=== PATIENT | female | born 1965 | race Two or more races ===

== ENCOUNTER 2016-03-14 14:27 | Emergency (ER) | payer OTHER ==
[2016-03-14 15:15] VITALS: TEMP 98.4
[2016-03-14 15:57] LABS: COLOR YELLOW; LEUKOCYTE ESTERASE,URINE NEGATIVE (NEGATIVE); NITRITE,URINE NEGATIVE (NEGATIVE); PH,URINE 5.5 (5.0-7.5)
--- NOTE | 2016-03-14 16:06 | UCPHY ---
H & P Patient Type: New Chief Complaint Nursing Narrative: Since monday night has had left side abd pain . 11/29. 3 wks ago had similar pain and was [facility] had some imaging and w/u and was told it could be "mesenteric ischemia "Seen by Charito holden. Decreased appetite . No vomiting . Increased Urination. Time Seen by Provider: 03/14/16 15:54 HPI/ROS: HPI: 50-year-old female presents to urgent care with chief concern left upper 10/10 abdominal pain that is constant, aching, associated with nausea and decreased appetite. Onset suddenly 3 days ago. Has had this intermittently times 4-6 months. Was evaluated by primary care, apparently CT was performed. Apparently patient was told to follow up with a specialist to rule out mesenteric ischemia. This was in over 1 month ago and she did not do so due to financial issues. Denies fever, URI symptoms, shortness of breath, chest pain, vomiting, diarrhea, urinary burning or frequency. Reports blood sugars that have been under control recently. ROS:10 point review of systems is negative other than as stated in HPI Source: Patient Exam Limitations: No limitations - Personal History LMP (Females 10-55): Post Menopausal - Medical/Surgical History Hx Asthma: No Hx Chronic Respiratory Disease: No Hx Diabetes: No Hx Cardiac Disease: No Hx Renal Disease: No Hx Cirrhosis: No Hx Alcoholism: No Hx HIV/AIDS: No Hx Splenectomy or Spleen Trauma: No Other PMH: PCP Yari Bettencourt. Fatty Liver. Htn , Prediabetic. Csec x 2 , Hernia ventral - Family History Significant Family History: No pertinent family hx - Social History Smoking Status: Never smoked Alcohol Use: Rarely Drug Use: None - Physical Exam Exam: Vital signs stable, reviewed by me General: Awake, alert, calm, cooperative. No acute distress. Head: Normalocephalic. Atraumatic. EENT: PERRLA. EOMI. No pallor or injection. Anicteric. No nystagmus. No injection. TMs intact bilaterally with normal landmarks. No rhinnorhea, nasal passages clear. Oropharynx without redness, exudates, or lesions. Tonsils 2+ bilaterally, no exudates. Neck: Supple, nontender. No lymphadenopathy. Full range of motion. No meningismus. Respiratory: Breathing unlabored. Breath sounds equal bilaterally and clear to auscultation. No adventitious sounds. CV: Chest nontender, atraumatic. Heart rate regular. No murmur, distal pulses 2+ bilaterally. Brisk cap refill all extremities. GI: Abdomen soft, moderate left upper quadrant tenderness. No guarding. No left lower quadrant tenderness. No right lower quadrant tenderness. No right upper quadrant tenderness. Bowel sounds normoactive and positive x4 quadrants. : No suprapubic tenderness. No CVA or flank tenderness. Neuro: Alert. Oriented x 3. Speech clear. Nonfocal cranial nerves throughout. Sensation intact all extremities. Skin: Skin warm, dry, intact. No rashes. Skin turgor normal. Extremities: Full range of motion in all 4 extremities. Strength 5+ all extremities. Constitutional: Initial Vital Signs Temperature (C) 36.9 C 03/14/16 15:06 Heart Rate 70 03/14/16 15:06 Respiratory Rate 18 03/14/16 15:06 Blood Pressure 141/77 H 03/14/16 15:06 O2 Sat (%) 95 03/14/16 15:06 O2 Delivery Mode Room Air O2 (L/minute) 2 Allergies/Adverse Reactions: dextromethorphan HBr [From Theraflu Max-D Severe Cold-Flu] Allergy (Verified 15:15) guaifenesin [From Theraflu Max-D Severe Cold-Flu] Allergy (Verified 03/14/16 15: 15) pseudoephedrine HCl [From Theraflu Max-D Severe Cold-Flu] Allergy (Verified 15:15) Home Medications: Medication Instructions Recorded Hydrochlorothiazide [HCTZ (*)] 25 mg PO DAILY 09/26/10 Lisinopril [Zestril 40 mg (*)] 40 mg PO DAILY 10/07/13 metFORMIN HCL [Glucophage 500 mg 500 mg PO BIDMEAL 10/07/13 (*)] Fatty Liver Medicine 03/14/16 Medical Decision Making - Diagnostics Imaging: CT Scan of the Abdomen (With Contrast) Clinical Indications: Left upper abdominal pain, elevated white blood cell count, diabetic Technique: 90 mL of Isovue-370 were given intravenously by machine power injection. Multidetector helical CT imaging was performed from the diaphragm to the symphysis pubis. Dose reduction techniques were utilized. Comparison: January 23, 2006 Findings: Abdomen: The lung bases are clear, without pleural fluid. Heart size is normal without pericardial effusion. The liver is normal. The biliary ducts and gallbladder are unremarkable. The pancreas and spleen are normal. The adrenal glands and kidneys are normal. No adenopathy and no masses are found. The abdominal aorta is normal in size. No small bowel obstruction. No abnormal bowel enhancement or lack of enhancement. There is normal contrast in the abdominal aorta, celiac axis, superior mesenteric artery and superior mesenteric vein. No free air or free fluid. Portions of a normal vermiform appendix are identified. A previous masslike abnormality in the region of the ileocecal valve is no longer present, and may have represented an ileocecal intussusception. There is no abdominal or mesenteric adenopathy. No skeletal abnormality is identified. Impression: No source for left upper abdominal pain identified. Results discussed with Angélica Win. Dictated By: Hosea Wright MD ED Course/Re-evaluation: 1615: 50-year-old female presents to urgent care with chief concern left upper abdominal pain 10/10 associated with nausea. Ongoing for 3 days. Has been intermittent over the past 4-6 months. IV started. Labs and urinalysis pending. Normal saline, 1 mg IV Dilaudid, 4 mg of IV Zofran given. CT abdomen with IV contrast ordered. 1700: White blood cell count 80822. Basic metabolic panel unremarkable. LFTs negative. Lipase 195. Amylase 75. Lactate 0.9. Urinalysis negative. CT abdomen pending. Pain now 3/10, nausea resolved. 1720: CT abdomen is negative. I have counseled this patient regarding prompt need for follow-up tomorrow with her primary care provider. She verbalizes understanding of this and agrees to do so. Her son is present. Differential Diagnosis: Differential diagnosis includes but is not limited to mesenteric ischemia, splenic infarct, abscess, CA - Data Points Laboratory Results: Laboratory Results 03/14/16 15:57 03/14/16 15:57 03/14/16 03/14/16 03/14/16 16:44 15:57 15:45 WBC 10.29 H 10^3/uL (3.80-9.50) RBC 4.72 10^6/uL (4.18-5.33) Hgb 13.9 g/dL (12.6-16.3) Hct 42.1 % (38.0-47.0) MCV 89.2 fL (81.5-99.8) MCH 29.4 pg (27.9-34.1) MCHC 33.0 g/dL (32.4-36.7) RDW 13.7 % (11.5-15.2) Plt Count 382 10^3/uL (150-400) MPV 9.3 fL (8.7-11.7) Neut % (Auto) 58.2 % (39.3-74.2) Lymph % (Auto) 30.6 % (15.0-45.0) [place] % (Auto) 7.1 % (4.5-13.0) Eos % (Auto) 3.2 % (0.6-7.6) Baso % (Auto) 0.6 % (0.3-1.7) Nucleat RBC Rel Count 0.0 % (0.0-0.2) Absolute Neuts (auto) 5.99 10^3/uL (1.70-6.50) Absolute Lymphs (auto) 3.15 H 10^3/uL (1.00-3.00) Absolute Monos (auto) 0.73 10^3/uL (0.30-0.80) Absolute Eos (auto) 0.33 10^3/uL (0.03-0.40) Absolute Basos (auto) 0.06 10^3/uL (0.02-0.10) Absolute Nucleated RBC 0.00 10^3/uL (0-0.01) Immature Gran % 0.3 % (0.0-1.1) Immature Gran # 0.03 10^3/uL (0.00-0.10) VBG Lactic Acid 0.9 mmol/L (0.7-2.1) Sodium 140 mEq/L (134-144) Potassium 4.3 mEq/L (3.5-5.2) Chloride 102 mEq/L (97-110) Carbon Dioxide 26 mEq/l (22-31) Anion Gap 12 mEq/L (8-16) BUN 17 mg/dL (7-23) Creatinine 0.8 mg/dL (0.6-1.0) Estimated GFR > 60 Glucose 85 mg/dL (70-100) Calcium 9.7 mg/dL (8.5-10.4) Total Bilirubin 0.5 mg/dL (0.1-1.4) Conjugated Bilirubin 0.4 mg/dL (0.0-0.5) Unconjugated Bilirubin 0.1 mg/dL (0.0-1.1) AST 16 IU/L (14-46) ALT 34 IU/L (9-52) Alkaline Phosphatase 76 IU/L (38-126) Total Protein 7.7 g/dL (6.3-8.2) Albumin 4.1 g/dL (3.5-5.0) Amylase 75 IU/L (30-110) Lipase 195.0 IU/L (23-300) Urine Color YELLOW Urine Appearance CLEAR Urine pH 5.5 (5.0-7.5) Ur Specific [place] 1.015 (1.002-1.030) Urine Protein NEGATIVE (NEGATIVE) Urine Ketones NEGATIVE (NEGATIVE) Urine Blood NEGATIVE (NEGATIVE) Urine Nitrate NEGATIVE (NEGATIVE) Urine Bilirubin NEGATIVE (NEGATIVE) Urine Urobilinogen 0.2 EU (0.2-1.0) Ur Leukocyte Esterase NEGATIVE (NEGATIVE) Urine Glucose NEGATIVE (NEGATIVE) Medications Given: Discontinued Medications Hydromorphone HCl (Dilaudid) 1 mg IVP EDNOW ONE Stop: 03/14/16 16:17 Last Admin: 03/14/16 16:30 Dose: 1 mg Sodium Chloride (Ns) 1,000 mls @ 0 mls/hr IV ONCE ONE PRN Reason: Wide Open Stop: 03/14/16 16:16 Last Admin: 03/14/16 16:30 Dose: 1,000 mls Ondansetron HCl (Zofran) 4 mg IVP EDNOW ONE Stop: 03/14/16 16:17 Last Admin: 03/14/16 16:30 Dose: 4 mg Departure - Departure Disposition: Home, Routine, Self-Care Clinical Impression: Left sided abdominal pain Condition: Good Instructions: Abdominal Pain (ED) Additional Instructions: Plan: You need to be evaluated by your primary care provider or other provider at [facility] tomorrow for recheck without fail--When you call to schedule appointment, please let the office know you are an "ER follow up" appointment" May use 1000 mg of Tylenol every 8 hours as needed for discomfort For more severe pain may use 1 Percocet every 4 hours as needed (given take home pack of 4)--Never drink or drive while taking this medication. This medication impairs decision making capacity so do not work or sign important documents while taking. This medication its constipating so drink plenty of fluids and consider an [id number] stool softener such as docusate sodium ( Colace) while taking this medication. This medication has addictive properties. You should use the least amount for the shortest amount of time. [facility] do not refill narcotic pain medication prescriptions. This is a hospital policy. You will need to follow up as indicated for recheck for further narcotic refills. For nausea, 1 Zofran every 4-6 hours as needed (given takehome pack of 2) Drink plenty of fluids Referrals: [facility],. [Primary Care Provider] - As per Instructions - PQRS PQRS Measurement: Not applicable
[2016-03-14 16:09] LABS: % IMMATURE GRANULYOCYTES 0.3 % (0.0-1.1); ABSOLUTE IMMATURE GRANULOCYTES 0.03 10^3/uL (0.00-0.10); ADD DIFF? NO; ADD MORPH? NO; ADD SCAN? NO; ATYPICAL LYMPHOCYTE FLAG 10 (0-99); FRAGMENT RBC FLAG 0 (0-99); HEMATOCRIT 42.1 % (38.0-47.0); HEMOGLOBIN 13.9 g/dL (12.6-16.3); LEFT SHIFT FLG 0 (0-99); LIPEMIA HEMOLYSIS FLAG 80 (0-99); MEAN CELL HEMOGLOBIN 29.4 pg (27.9-34.1); MEAN CELL VOLUME 89.2 fL (81.5-99.8); MEAN PLATELET VOLUME 9.3 fL (8.7-11.7); PLATELET CLUMPS FLAG 0 (0-99); PLATELET COUNT 382 10^3/uL (150-400); RED BLOOD CELL COUNT 4.72 10^6/uL (4.18-5.33); RED CELL DISTRIBUTION WIDTH 13.7 % (11.5-15.2)
[2016-03-14] MEDS ORDERED: NS 1,000 ML IV ONE (16:15)
[2016-03-14] MEDS ORDERED: HYDROmorphONE/DILAUDID 1 MG/ML SYR IVP ONE (16:16)
[2016-03-14] MEDS ORDERED: ONDANSETRON 4 MG/2 ML VIAL IVP ONE (16:16)
[2016-03-14] MEDS ORDERED: IOPAMIDOL (ISOVUE 370) 100 ML BTL IV ONE (16:21)
[2016-03-14 16:24] LABS: ALANINE AMINOTRANSFERASE 34 IU/L (9-52); ALBUMIN 4.1 g/dL (3.5-5.0); ALKALINE PHOSPHATASE 76 IU/L (38-126); ANION GAP 12 mEq/L (8-16); ASPARTATE AMINOTRANSFERASE 16 IU/L (14-46); BILIRUBIN,TOTAL 0.5 mg/dL (0.1-1.4); BILIRUBIN-CONJUGATED 0.4 mg/dL (0.0-0.5); BILIRUBIN-UNCONJUGATED 0.1 mg/dL (0.0-1.1); CALCIUM 9.7 mg/dL (8.5-10.4); CARBON DIOXIDE 26 mEq/l (22-31); CHLORIDE 102 mEq/L (97-110); CREATININE 0.8 mg/dL (0.6-1.0); GLOMERULAR FILTRATION RATE > 60; GLUCOSE 85 mg/dL (70-100); POTASSIUM 4.3 mEq/L (3.5-5.2); SODIUM 140 mEq/L (134-144); TOTAL PROTEIN 7.7 g/dL (6.3-8.2)
--- NOTE | 2016-03-14 17:17 | CT ---
CT Scan of the Abdomen (With Contrast) Clinical Indications: Left upper abdominal pain, elevated white blood cell count, diabetic Technique: 90 mL of Isovue-370 were given intravenously by machine power injection. Multidetector helical CT imaging was performed from the diaphragm to the symphysis pubis. Dose reduction techniques were utilized. Comparison: January 23, 2006 Findings: Abdomen: The lung bases are clear, without pleural fluid. Heart size is normal without pericardial e ffusion. The liver is normal. The biliary ducts and gallbladder are unremarkable. The pancreas and spleen are normal. The adrenal glands and kidneys are normal. No adenopathy and no masses are found . The abdominal aorta is normal in size. No small bowel obstruction. No abnormal bowel enhancement or lack of enhancement. There is normal contrast in the abdominal aorta, celiac axis, superior mesenter ic artery and superior mesenteric vein. No free air or free fluid. Portions of a normal vermiform charity endix are identified. A previous masslike abnormality in the region of the ileocecal valve is no long er present, and may have represented an ileocecal intussusception. There is no abdominal or mesenteri c adenopathy. No skeletal abnormality is identified. Impression: No source for left upper abdominal pain identified. Results discussed with Angélica Win.
[2016-03-14] MEDS ORDERED: OXYCODONE/APAP 5/325MG PREPACK#4 BTL TAKEHOME ONE (17:28)
[2016-03-14] MEDS ORDERED: ONDANSETRON 4MG PREPACK#2 BTL TAKEHOME ONE (17:28)
[2016-03-14 18:31] VITALS: BP 106/64; PULSE 72; RESP 16; O2SAT 98
== END 2016-03-14 18:26 | disposition home or self-care (01) ==
LOC: CED 14:27
DX: R10.12 Left upper quadrant pain (principal); I10 Essential (primary) hypertension; Z78.0 Asymptomatic menopausal state
CPT/HCPCS: 74160-PO; 80048-PO; 80076-PO; 81003-PO; 82150-PO; 83605-PO; 83690-PO; 85025-PO; 96361-PO; 96374-PO; 96375-PO; 99205-PO; G0463-PO; J1170; J2405; Q9967

== ENCOUNTER 2017-11-13 13:08 | Emergency (ER) | payer OTHER ==
[2017-11-13 14:15] LABS: PLATELET COUNT 343 10^3/uL (150-400)
--- NOTE | 2017-11-13 14:30 | EDPHY ---
HPI/HX/ROS/PE/MDM - Data Points Imaging: Discussed imaging studies w/ call manager Radiologist Narrative: CHIEF COMPLAINT: Abdominal pain. HISTORY OF PRESENT ILLNESS: This patient is a pleasant 52 year old female complaining of abdominal pain. She has had RLQ abdominal pain for two days with associated nausea. She went to [facility] for evaluation and was referred to the ED with concern for appendicitis. Yesterday, she felt febrile. Now, she no longer feels febrile but complains of increasingly severe pain. Today, she also has pain in her right flank. She has increased pain with movement or when she walks. Food also seems to make her pain worse. She denies hematuria, dysuria, urinary frequency or urgency. Denies history of kidney stones. No chest pain, shortness of breath, palpitations, vomiting, diarrhea, urinary complaints, headache, lightheadedness. REVIEW OF SYSTEMS: A comprehensive 10 system review of systems is otherwise negative aside from elements mentioned in the history of present illness and medical decision making. PAST MEDICAL HISTORY: Pre-diabetes. Hypertension. x2. Hernia repair. SOCIAL HISTORY: Family at bedside. Lives in [place]. Employed. VITAL SIGNS: Reviewed by me GENERAL: Well-developed, well-nourished, resting comfortably in no respiratory distress. HEENT: Atraumatic. Eyes: No icterus, no injection. Mouth: moist mucous membranes. No erythema or lesions. Neck: supple with no adenopathy. LUNGS: Clear to auscultation bilaterally, no wheezes, rhonchi or rales. CARDIAC: Regular rate and rhythm, no rubs, murmurs or gallops. ABDOMEN: RLQ tenderness. Soft, nondistended, bowel sounds normal. BACK: Right flank tenderness. EXTREMITIES: No trauma. No edema. Range of motion is normal throughout. NEURO: Alert and oriented, grossly nonfocal. SKIN: Warm and dry, no rash. PSYCHIATRIC: Normal mentation, no agitation. Portions of this note were transcribed by a bacteriologist medical. I personally performed a history, physical exam, medical decision making, and confirmed accuracy of information the transcribed note. (Sarina Baxter) ED Course: 52 y/o female presents with RLQ abdominal pain and nausea onset two days ago. Exam reveals RLQ and right flank tenderness. Plan for CT abdomen/pelvis, labs including CBC, chemistries, UA. Labs unremarkable. UA neg for infection. No significant RUQ pain. CT scan normal appendix. No kidney stone. US pending at time of this dictation. No evidence for acute abdomen. Will make plans for DC with abdominal pain precautions and follow up pending US results. Care assumed by Dr Boykin at 5pm. (Sarina Baxter) Ultrasound reported to me by Dr. Puri at 5:20 p.m.. Calcified leiomyoma in the fundus of the uterus, ovaries normal. Patient is being discharged home as per Dr. Baxter's instructions. (Noemi Boykin) MDM: After obtaining the patients history and performing an examination, differential diagnosis considered included but was not limited to appendicitis, cholecystitis, pelvic etiology, UTI, kidney stone and other causes. (Sarina Baxter) - Data Points Imaging Results: Pelvic US: Impression: 1. Right fundal calcified 1.9- x 1.8- x 1.1-cm leiomyoma. 2. No adnexal masses or ovarian torsion. 3. No significant free fluid in the pelvis. Findings and recommendations discussed with Emergency Department physician, Noemi Boykin M.D., at 1722 hours, on November 13, 2017. Final report concurs with initial preliminary interpretation. E:GI/amm Dictated By: Dave Puri (Sarina Baxter) Laboratory Results: Laboratory Results 11/13/17 14:00 11/13/17 14:00 Medications Given: Discontinued Medications Sodium Chloride (Ns) 1,000 mls @ 0 mls/hr IV ONCE ONE; Wide Open PRN Reason: Protocol Stop: 11/13/17 15:52 Last Admin: 11/13/17 15:56 Dose: 1,000 mls Ketorolac Tromethamine (Toradol) 15 mg IVP EDNOW ONE Stop: 11/13/17 16:25 Last Admin: 11/13/17 17:09 Dose: 15 mg General Time Seen by Provider: 11/13/17 14:14 Initial Vital Signs: Initial Vital Signs Temperature (C) 36.7 C 11/13/17 13:09 Heart Rate 90 11/13/17 13:09 Respiratory Rate 18 11/13/17 13:09 Blood Pressure 138/87 H 11/13/17 13:09 O2 Sat (%) 96 11/13/17 13:09 O2 Delivery Mode Room Air Allergies/Adverse Reactions: dextromethorphan HBr [From Theraflu Max-D Severe Cold-Flu] Allergy (Verified 15:15) guaifenesin [From Theraflu Max-D Severe Cold-Flu] Allergy (Verified 03/14/16 15: 15) pseudoephedrine HCl [From Theraflu Max-D Severe Cold-Flu] Allergy (Verified 15:15) Home Medications: Medication Instructions Recorded Hydrochlorothiazide [HCTZ (*)] 25 mg PO DAILY 09/26/10 Lisinopril [Zestril 40 mg (*)] 40 mg PO DAILY 10/07/13 metFORMIN HCL [Glucophage 500 mg 500 mg PO BIDMEAL 10/07/13 (*)] Fatty Liver Medicine 03/14/16 Ondansetron Odt [Zofran Odt 4 mg 4 mg PO Q6 PRN #8 tab 11/13/17 (RX)] Departure - Departure Disposition: Home, Routine, Self-Care Clinical Impression: Abdominal pain Qualifiers: Abdominal location: right lower quadrant Qualified Code(s): R10.31 - Right lower quadrant pain Condition: Good Instructions: Acute Abdominal Pain (ED) Additional Instructions: There is no evidence of appendicitis on your abdominal CT scan. There is no evidence of a bowel obstruction or cause of your abdominal pain which would require surgery. For your abdominal pain, I suggested you start with a bland diet and advance as tolerated. This means start with clear liquids such as water, Gatorade, juice, flat non- caffeinated soda. If you tolerate clear liquids, then you may add bland foods such as bananas, rice, or toast. If you do not have any worsening of your symptoms, you may begin to resume a regular diet. For your pain, I recommend Tylenol or ibuprofen. For your nausea you been given a prescription of Zofran to use as needed for ongoing nausea. Please follow up with your primary care physician if you're not improving as expected over the next couple days. Referrals: Juliocesar Greenberg MD [Primary Care Provider] - As per Instructions Stand Alone Forms: Work Excuse Prescriptions: Ondansetron Odt [Zofran Odt 4 mg (RX)] 4 mg PO Q6 PRN #8 tab PRN Reason: Nausea Report Scribed for: Sarina Baxter Report Scribed by: Janie Porter Date of Report: 11/13/17 Time of Report: 15:35
[2017-11-13] MEDS ORDERED: IOPAMIDOL (ISOVUE-300) 100 ML BTL ONE (14:52)
[2017-11-13] MEDS ORDERED: NS 1,000 ML IV ONE (15:51)
[2017-11-13] MEDS ORDERED: KETOROLAC 15 MG/1 ML SDV IVP ONE (16:24)
[2017-11-13 17:36] VITALS: BP 125/85
== END 2017-11-13 17:45 | disposition home or self-care (01) ==
DX: D25.9 Leiomyoma of uterus, unspecified (principal); I10 Essential (primary) hypertension; E86.9 Volume depletion, unspecified
CPT/HCPCS: 96374; J1885; Q9967

== ENCOUNTER 2018-03-10 16:57 | Inpatient (IN) | payer OTHER ==
[2018-03-10] MEDS ORDERED: ACETAMINOPHEN 500 MG TAB PO ONE (17:17)
[2018-03-10] MEDS ORDERED: NS 1,000 ML IV ONE ×3 (17:24→21:25)
[2018-03-10] MEDS ORDERED: ONDANSETRON 4 MG/2 ML VIAL IVP PRN ×2 (17:24→21:24)
--- NOTE | 2018-03-10 17:29 | EDPHY ---
General - History Smoking Status: Never smoked Time Seen by Provider: 03/10/18 17:25 Narrative: CLINICAL IMPRESSION: Sepsis, strep pharyngitis, influenza a, hypoxia ASSESSMENT/PLAN: Patient is a 52-year-old female with a history of diabetes and hypertension who presents to the emergency department with fever, myalgias, sore throat and nausea. Patient is febrile on arrival, tachycardic. Physical exam revealed bilateral symmetric tonsillar enlargement with exudate. Rapid strep positive, influenza a positive. Chest x-ray revealed no evidence of infiltrate or consolidation. CBC with leukocytosis of 20,000, suspect directly resultant of a strep pharyngitis. Patient does meet sepsis criteria based on leukocytosis and source, fluid resuscitated with 2 L of normal saline. Patient given Decadron, Tylenol, Toradol, Tamiflu and 1 g of amoxicillin in the emergency department. Patient continued to feel better than on arrival however she had episodes of hypoxia in the mid 80s. She was ultimately placed on 3 L of oxygen via nasal cannula. History and physical examination is consistent with sepsis, strep pharyngitis, influenza a and hypoxia. Patient will be admitted to the hospitalist service for further observation and management. She did remain hemodynamically stable in the emergency department. I spoke directly with Dr. Leung who will be the admitting physician. Case, results and plan of care discussed with Dr. Esposito, he also evaluated this patient. DIFFERENTIAL DX: Adult fever including but not limited to viral syndromes including influenza, urinary tract infection, pneumonia and sepsis. ED COURSE: 1754: Discussed with Dr. Esposito 1840: Dr. Esposito in to see patient at this time. CHIEF COMPLAINT: Headache, nausea, sore throat and myalgias HPI: Patient is a 52-year-old female with a medical history of hypertension and recent diagnosis of diabetes who presents to the emergency department with nausea, body aches, headache and decreased appetite which started suddenly yesterday at 9:00 p.m.. Patient was seen and evaluated by her primary care provider earlier in the week, diagnosed with diabetes and was started on metformin. Yesterday she reports a sudden onset of sore throat, body aches and generally feeling unwell at 9:00 p.m.. Since then she has had very low appetite , nausea however denies any vomiting. She has had a progressive headache throughout the day, denies it being the worst headache of her life, also complains of generalized body aches. No known sick contacts, she did get a flu shot back in December. She denies any runny nose, congestion or cough. Her stomach feels upset however she does not have any abdominal pain. She denies any urinary symptoms to include dysuria, hematuria or frequency. Bowel movements have been regular. PMH: Diabetes, hypertension Family History: Noncontributory Social History: REVIEW OF SYSTEMS: All other systems negative Constitutional: Decreased appetite Eyes: No discharge, vision change ENT: No sore throat, congestion, ear pain. Cardiovascular: No chest pain, no palpitations. Respiratory: No cough, no shortness of breath. Gastrointestinal: Nausea, no abdominal pain, vomiting or diarrhea. Genitourinary: No hematuria, dysuria, flank pain, pelvic pain Musculoskeletal: Myalgias, no neck pain or back pain. Skin: No rashes, color change. Neurological: Headache. PHYSICAL EXAM: General Appearance: Obese, tired appearing and uncomfortable appearing however not toxic-appearing. HENT: Normocephalic, atraumatic. Bilateral external ears are normal. Bilateral tympanic membranes are normal with pearly garrett reflex. Nares are clear, mucosa is pink. Oropharynx is clear, uvula is midline. There is symmetric bilateral tonsillar enlargement with exudate. Her phonation is normal without hot potato voice, there is no trismus and there is no stridor. The dentition is normal. Eyes: PERRLA, no nystagmus, swelling, discharge, pain or photosensitivity. Conjunctiva pink, no pallor or injection. Neck: Supple, nontender, no lymphadenopathy, no midline pain, FROM, no meningismus. Respiratory: There are no retractions, lungs are clear to auscultation. Cardiac: Tachycardic, no murmurs or gallops. Gastrointestinal: Abdomen is soft, nontender, bowel sounds normal, no masses/ hernia, no rigidity, guarding or focal peritoneal findings. Neurological: Alert and oriented x 3, CN 2-12 grossly intact, normal gait no ataxia, DTR's intact, normal sensation and strength Skin: Warm, dry, no rashes, no nodules on palpation. Musculoskeletal: Extremities are symmetrical, full range of motion, no tenderness, deformity, swelling, or erythema. Psychiatric: Patient is oriented X 3, there is no agitation. MEDICAL DECISION MAKING: Patient was seen independently. Secondary supervising physician at time of evaluation was . Diagnosis: Sepsis, influenza a, strep pharyngitis, hypoxia . New, requires workup Summary: See Assessment and Plan for summary of ED visit Clinical lab tests: ordered / reviewed. Independent visualization of images, tracing, or specimens: Yes. Decision to obtain medical records or history from someone other than the patient: No. Review / Summarize previous medical records: Yes. Discussed patient with another provider: Yes, Dr. Esposito and Dr. Leung. Patient Progress: Stable, admit. (Leticia Harrison) - Objective Vital Signs: Initial Vital Signs Temperature (C) 39.4 C H 03/10/18 17:06 Heart Rate 117 H 03/10/18 17:06 Respiratory Rate 22 H 03/10/18 17:06 Blood Pressure 124/74 H 03/10/18 17:06 O2 Sat (%) 95 03/10/18 17:06 O2 Delivery Mode Room Air O2 (L/minute) 0.5 Allergies/Adverse Reactions: dextromethorphan HBr [From Theraflu Max-D Severe Cold-Flu] Allergy (Verified 17:09) guaifenesin [From Theraflu Max-D Severe Cold-Flu] Allergy (Verified 03/10/18 17: 09) pseudoephedrine HCl [From Theraflu Max-D Severe Cold-Flu] Allergy (Verified 17:09) Home Medications: Medication Instructions Recorded Hydrochlorothiazide [HCTZ (*)] 25 mg PO HS 09/26/10 Lisinopril [Zestril 40 mg (*)] 40 mg PO HS 10/07/13 metFORMIN HCL [Glucophage 500 mg 500 mg PO BIDMEAL 10/07/13 (*)] Fatty Liver Medicine 03/14/16 Laboratory Results: Laboratory Results 03/11/18 04:13 03/11/18 04:13 Medications Given: Acetaminophen (Tylenol) 650 mg PO Q6 PRN PRN Reason: Pain, Mild/Fever, Can Take PO Stop: 09/06/18 21:23 Last Admin: 03/11/18 09:30 Dose: 650 mg Amoxicillin (Amoxicillin) 500 mg PO Q8HRS ISA PRN Reason: Protocol Stop: 04/09/18 21:59 Last Admin: 03/11/18 21:36 Dose: 500 mg Enoxaparin Sodium (Lovenox) 40 mg SC BID [facility] Stop: 09/07/18 08:59 Last Admin: 03/11/18 21:37 Dose: 40 mg Sodium Chloride (Ns) 1,000 mls @ 150 mls/hr IV CONT [facility] Stop: 09/06/18 21:29 Last Admin: 03/11/18 14:30 Dose: 1,000 mls Ibuprofen (Motrin) 600 mg PO Q6HRS PRN PRN Reason: Pain, Mild Stop: 09/07/18 09:27 Last Admin: 03/11/18 18:02 Dose: 600 mg Melatonin (Melatonin) 3 mg PO HS [facility] Stop: 09/07/18 20:59 Last Admin: 03/11/18 21:36 Dose: 3 mg Metformin HCl (Glucophage) 500 mg PO BIDMEAL [facility] Stop: 09/07/18 07:59 Last Admin: 03/11/18 18:03 Dose: 500 mg Ondansetron HCl (Zofran) 4 mg IVP Q4 PRN PRN Reason: Nausea/Vomiting, Can't Take PO Stop: 09/06/18 17:23 Last Admin: 03/10/18 19:15 Dose: 4 mg Oseltamivir Phosphate (Tamiflu) 75 mg PO BIDMEAL [facility] Stop: 03/15/18 18:01 Last Admin: 03/11/18 18:04 Dose: 75 mg Discontinued Medications Acetaminophen (Tylenol) 1,000 mg PO EDNOW ONE Stop: 03/10/18 17:18 Last Admin: 03/10/18 17:20 Dose: 1,000 mg Amoxicillin (Amoxicillin) 1,000 mg PO EDNOW ONE PRN Reason: Protocol Stop: 03/10/18 18:51 Last Admin: 03/10/18 19:15 Dose: 1,000 mg Dexamethasone (Decadron Injection) 10 mg IVP EDNOW ONE Stop: 03/10/18 18:50 Last Admin: 03/10/18 19:15 Dose: 10 mg Sodium Chloride (Ns) 1,000 mls @ 0 mls/hr IV ONCE ONE PRN Reason: Wide Open Stop: 03/10/18 17:25 Last Admin: 03/10/18 17:35 Dose: 1,000 mls Sodium Chloride (Ns) 1,000 mls @ 0 mls/hr IV ONCE ONE PRN Reason: Wide Open Stop: 03/10/18 18:41 Last Admin: 03/10/18 19:14 Dose: 1,000 mls Sodium Chloride (Ns) 1,000 mls @ 0 mls/hr IV ONCE ONE PRN Reason: Wide Open Stop: 03/10/18 21:26 Last Admin: 03/10/18 21:27 Dose: 1,000 mls Sodium Chloride (Ns) 1,000 mls @ 3,000 mls/hr IV ONCE ONE Stop: 03/11/18 12:54 Last Admin: 03/11/18 12:59 Dose: 1,000 mls Ketorolac Tromethamine (Toradol) 30 mg IVP EDNOW ONE Stop: 03/10/18 18:12 Last Admin: 03/10/18 18:30 Dose: 30 mg Oseltamivir Phosphate (Tamiflu) 75 mg PO EDNOW ONE Stop: 03/10/18 18:40 Last Admin: 03/10/18 19:15 Dose: 75 mg Departure - Departure Disposition: [facility] Acute Clinical Impression: Influenza A, Strep pharyngitis, Hypoxia Sepsis Qualifiers: Sepsis type: Streptococcus group A Qualified Code(s): A40.0 - Sepsis due to streptococcus, group A Condition: Good
[2018-03-10] MEDS ORDERED: KETOROLAC 30 MG/1 ML SDV IVP ONE (18:11)
[2018-03-10 18:12] LABS: PLATELET COUNT 283 10^3/uL (150-400)
[2018-03-10] MEDS ORDERED: OSELTAMIVIR PHOSPHATE 75 MG CAP PO ONE (18:39)
[2018-03-10] MEDS ORDERED: DEXAMETHASONE 10 MG/ML VIAL IVP ONE (18:49)
[2018-03-10] MEDS ORDERED: ZOLPIDEM TARTRATE 5 MG TAB PO PRN (21:24)
[2018-03-10] MEDS: NS 1,000 ML IV SCH (23:02)
--- NOTE | 2018-03-11 00:28 | PDGENHP ---
History and Physical - Chief Complaint Sore throat, fever - History of Present Illness 52 yo F w/ DM and HTN presents with fever, sore throat, and malaise. She tells me she started feeling poorly yesterday evening. She noted fever, sore throat, shortness of breath, and dizziness. In the ED her evaluation was notable for marked leukocytosis, influenza A, and strep pharyngitis. At the time of my evaluation the patient feels moderately improved after fluids. She is oxygenating well on room air during my evaluation. She denies other symptoms aside from fatigue. Case discussed with Dr. Leung; records reviewed and summarized above. History Information - Allergies/Home Medication List Allergies/Adverse Reactions: dextromethorphan HBr [From Theraflu Max-D Severe Cold-Flu] Allergy (Verified 17:09) guaifenesin [From Theraflu Max-D Severe Cold-Flu] Allergy (Verified 03/10/18 17: 09) pseudoephedrine HCl [From Theraflu Max-D Severe Cold-Flu] Allergy (Verified 17:09) Home Medications: Hydrochlorothiazide [HCTZ (*)] 25 mg PO HS 09/26/10 [Last Taken 03/09/18] Lisinopril [Zestril 40 mg (*)] 40 mg PO HS 10/07/13 [Last Taken 03/09/18] metFORMIN HCL [Glucophage 500 mg (*)] 500 mg PO BIDMEAL 10/07/13 [Last Taken PM] Fatty Liver Medicine 03/14/16 [Last Taken Unknown] I have personally reviewed and updated: family history, medical history - Past Medical History diabetes type 2, hypertension - Surgical History Reports: hernia repair Additional surgical history: x2 - Family History Positive for: CAD - Social History Smoking Status: Never smoked Review of Systems Review of Systems: ROS: 10pt was reviewed & negative except for what was stated in HPI & below Physical Exam Physical Exam: Temp Pulse Resp BP Pulse Ox 36.6 C 76 20 82/53 L 92 03/10/18 23:26 03/10/18 23:26 03/10/18 23:26 03/10/18 23:26 03/10/18 23:26 O2 (L/minute) 0.5 Constitutional: obese, uncomfortable Eyes: PERRL, EOMI Ears, Nose, Mouth, Throat: moist mucous membranes, other (Pharyngeal erythema) Cardiovascular: regular rate and rhythym, no murmur, rub, or gallop Respiratory: no respiratory distress, clear to auscultation Gastrointestinal: normoactive bowel sounds, soft, non-tender abdomen Skin: warm, normal color Musculoskeletal: full muscle strength, no muscle tenderness Neurologic: AAOx3, CN II-XII Intact Psychiatric: interacting appropriately, not anxious Lab Data & Imaging Review 03/10/18 17:30 03/10/18 17:30 WBC 20.10 10^3/uL (3.80-9.50) H 03/10/18 17:30 RBC 4.48 10^6/uL (4.18-5.33) 03/10/18 17:30 Hgb 12.8 g/dL (12.6-16.3) 03/10/18 17:30 Hct 37.5 % (38.0-47.0) L 03/10/18 17:30 MCV 83.7 fL (81.5-99.8) 03/10/18 17:30 MCH 28.6 pg (27.9-34.1) 03/10/18 17:30 MCHC 34.1 g/dL (32.4-36.7) 03/10/18 17:30 RDW 14.1 % (11.5-15.2) 03/10/18 17:30 Plt Count 283 10^3/uL (150-400) 03/10/18 17:30 MPV 9.9 fL (8.7-11.7) 03/10/18 17:30 Neut % (Auto) 87.8 % (39.3-74.2) H 03/10/18 17:30 Lymph % (Auto) 6.6 % (15.0-45.0) L 03/10/18 17:30 [place] % (Auto) 4.8 % (4.5-13.0) 03/10/18 17:30 Eos % (Auto) 0.0 % (0.6-7.6) L 03/10/18 17:30 Baso % (Auto) 0.3 % (0.3-1.7) 03/10/18 17:30 Nucleat RBC Rel Count 0.0 % (0.0-0.2) 03/10/18 17:30 Absolute Neuts (auto) 17.65 10^3/uL (1.70-6.50) H 03/10/18 17:30 Absolute Lymphs (auto) 1.32 10^3/uL (1.00-3.00) 03/10/18 17:30 Absolute Monos (auto) 0.97 10^3/uL (0.30-0.80) H 03/10/18 17:30 Absolute Eos (auto) 0.00 10^3/uL (0.03-0.40) L 03/10/18 17:30 Absolute Basos (auto) 0.06 10^3/uL (0.02-0.10) 03/10/18 17:30 Absolute Nucleated RBC 0.00 10^3/uL (0-0.01) 03/10/18 17:30 Immature Gran % 0.5 % (0.0-1.1) 03/10/18 17:30 Immature Gran # 0.10 10^3/uL (0.00-0.10) 03/10/18 17:30 Sodium 132 mEq/L (135-145) L 03/10/18 17:30 Potassium 3.9 mEq/L (3.5-5.2) 03/10/18 17:30 Chloride 98 mEq/L (97-110) 03/10/18 17:30 Carbon Dioxide 20 mEq/l (22-31) L 03/10/18 17:30 Anion Gap 14 mEq/L (6-14) 03/10/18 17:30 BUN 20 mg/dL (7-23) 03/10/18 17:30 Creatinine 1.1 mg/dL (0.6-1.0) H 03/10/18 17:30 Estimated GFR 52 03/10/18 17:30 Glucose 165 mg/dL (70-100) H 03/10/18 17:30 Calcium 9.1 mg/dL (8.5-10.4) 03/10/18 17:30 Total Bilirubin 0.6 mg/dL (0.1-1.4) 03/10/18 17:30 AST 20 IU/L (14-46) 03/10/18 17:30 ALT 24 IU/L (9-52) 03/10/18 17:30 Alkaline Phosphatase 97 IU/L (38-126) 03/10/18 17:30 Total Protein 7.5 g/dL (6.3-8.2) 03/10/18 17:30 Albumin 4.4 g/dL (3.5-5.0) 03/10/18 17:30 Nasal Influenza A PCR FLU A DETECTED (NEGATIVE) H 03/10/18 17:30 Nasal Influenza B PCR NEGATIVE FOR FLU B (NEGATIVE) 03/10/18 17:30 Group A Strep Screen POSITIVE (NEGATIVE) H 03/10/18 18:15 Imaging Review: Imaging Impressions Chest X-Ray 03/10/18 20:10 Impression: Central bronchitis. Visualized and Interpreted Chest x-ray results: Yes Chest X-Ray results: no infiltrate Assessment & Plan Assessment: 52 yo F w/ DM and HTN presents with influenza A and strep pharyngitis. Plan: 1. Influenza A - Presenting with 1 day of fever, sore throat, and malaise. - Oseltamivir x5 days - Supportive care with IVF and antipyretics 2. Strep pharyngitis - Pharyngeal erythema and tonsillar enlargement noted on exam. - Amoxicillin 500 mg q8H PO 3. Hyponatremia - Mild, suspect related to infection and dehydration. - IVF - Repeat BMP in the morning 4. KAYLIN - Serum creatinine 1.1 on admission; suspect pre-renal azotemia in setting of infection. - IVF - Repeat BMP in the morning 5. DM - Continue metformin. 6. HTN - Hold home meds in setting of infection and low/normal BPs. - Restart as indicated Diet - Regular Code - Full Ppx - LMWH Dispo - Admit under observation status
[2018-03-11 04:53] LABS: PLATELET COUNT 282 10^3/uL (150-400)
[2018-03-11] MEDS: NS 1,000 ML IV SCH ×3 (05:43→14:30)
[2018-03-11] MEDS: OSELTAMIVIR PHOSPHATE 75 MG CAP PO SCH ×2 (09:08→18:04)
[2018-03-11] MEDS: metFORMIN HCL 500 MG TAB PO SCH ×2 (09:08→18:03)
[2018-03-11] MEDS: ENOXAPARIN 40 MG/0.4 ML SYR SC SCH ×2 (09:20→21:37)
[2018-03-11] MEDS: ACETAMINOPHEN 325 MG TAB PO PRN (09:30)
--- NOTE | 2018-03-11 09:46 | ASMTCMCOM ---
CM Note CM Note Notes: 03/11/2018 Case Management Note Reviewed chart. Pt admitted for hypoxia, strep pharyngitis and influenza A. There are no therapies ordered at this time. There are no case management d/c needs identified d/t pt age, family support, employment status and independence with ADL's prior to admission. Case Management d/c poc: independent with follow up as directed. Case Management to follow. Date Signed: 03/11/2018 09:45 AM Electronically Signed By:Nancy Yeh RN
[2018-03-11] MEDS: IBUPROFEN 600 MG TAB PO PRN ×2 (12:00→18:02)
[2018-03-11] MEDS ORDERED: NS 1,000 ML IV ONE (12:35)
--- NOTE | 2018-03-11 12:39 | HOSPPROG ---
Hospitalist Progress Note Assessment/Plan: 52 yo F w/ DM and HTN presents with influenza A and strep pharyngitis. 1. Influenza A: Presenting with 1 day of fever, sore throat, and malaise. She is on room air. - Oseltamivir x5 days - Supportive care with IVF and antipyretics 2. Strep pharyngitis: Pharyngeal erythema and tonsillar enlargement noted on exam. GAS screen +. - Amoxicillin 500 mg q8H PO, plan for 10 days 3. Hypotension: Due to infection. She is symptomatic. - Bolus another 1L NS, continue mIVF 4. Hyponatremia: Mild, resolved with IVF. 5. KAYLIN: Resolving with IVF. 6. Sepsis: Meeting criteria with fever, leukocytosis and pharyngeal source. Present on admission. Improving. - Monitor hemodynamics, CBC 7. DM: Continue metformin. 8. HTN: Hold home meds in setting of infection and low/normal BPs. 9. Dizziness: Due to dehydration/hypotension. - PT/OT Diet - Regular Code - Full Ppx - LMWH Dispo - Switch to inpatient, unsafe to dc to home with unsteady gait and hypotension. Suspect she will be ready to dc tomorrow. Subjective: Shortness of breath, cough, and fevers better. Feeling very dizzy when getting up and moving around. Still has mild sore throat. No n/v/d. Objective: Vital Signs Temp Pulse Resp BP Pulse Ox 36.5 C 68 16 85/52 L 93 03/11/18 11:26 03/11/18 11:26 03/11/18 11:26 03/11/18 11:26 03/11/18 11:26 Laboratory Results 03/11/18 04:13 03/11/18 04:13 03/10/18 03/11/18 03/12/18 05:59 05:59 05:59 Intake Total 2100 Balance 2100 - Physical Exam Constitutional: no apparent distress, obese Eyes: PERRL, anicteric sclera, EOMI Ears, Nose, Mouth, Throat: moist mucous membranes, hearing normal, ears appear normal, no oral mucosal ulcers Cardiovascular: regular rate and rhythym, no murmur, rub, or gallop, No edema Respiratory: no respiratory distress, no rales or rhonchi, clear to auscultation Gastrointestinal: normoactive bowel sounds, soft, non-tender abdomen, no palpable masses Genitourinary: no bladder fullness, no bladder tenderness, no renal bruits Skin: no rashes or abrasions, no fluctuance, no induration Musculoskeletal: full muscle strength, no muscle tenderness, normal joint ROM Neurologic: AAOx3, sensation intact bilaterally Psychiatric: interacting appropriately, not anxious, not encephalopathic, thought process linear ICD10 Worksheet Patient Problems: Problems Problem Status Onset Hypoxia Acute Influenza A Acute Sepsis Acute Strep pharyngitis Acute Abdominal pain Acute Syncope Acute
--- NOTE | 2018-03-11 15:02 | PDMN ---
Medical Necessity Medical necessity: Change to inpt as of 03/11/18 @ 13:03 per MD order and MCG M- 160, Sepsis and Other Febrile Illness, without Focal Infection. 52 y/o admitted w/influenza and strep pharyngitis and sepsis. Upgraded to inpt for hemodynamic instability, hypotensive, symptomatic w/dizziness due to infection requiring IVF bolus, last BP 85/52. Est LOS>2MN for ongoing management of above.
[2018-03-11] MEDS: MELATONIN 3 MG TAB PO SCH (21:36)
[2018-03-12] MEDS: IBUPROFEN 600 MG TAB PO PRN ×3 (08:54→22:02)
[2018-03-12] MEDS: metFORMIN HCL 500 MG TAB PO SCH ×2 (08:54→18:49)
[2018-03-12] MEDS: OSELTAMIVIR PHOSPHATE 75 MG CAP PO SCH ×2 (08:54→18:49)
--- NOTE | 2018-03-12 10:32 | HOSPPROG ---
Hospitalist Progress Note Assessment/Plan: 52 yo F w/ DM and HTN presents with influenza A and strep pharyngitis. First encounter, chart reviewed. * Influenza A - Oseltamivir x5 days - Supportive care with IVF and antipyretics *Strep pharyngitis: Pharyngeal erythema and tonsillar enlargement noted on exam. GAS screen +. - Amoxicillin 500 mg q8H PO, plan for 10 days *leukocytosis -due to the above *Hypotension: Due to infection. -bp still low today, but feeling better and drinking fluids * Hyponatremia: Mild. * KAYLIN: Resolving with IVF. * Sepsis: Improving. * DM: Continue metformin. * HTN: Hold home meds in setting of infection and low/normal BPs. *Dizziness: Due to dehydration/hypotension. - PT/OT Diet - Regular *plan: with continued high wbc count, hypotension, overall feeling poorly; will monitor overnight and see how she is in the morning. 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 Subjective: Humaira has improved appetite, has aches in her spine area and feels tired. Objective: Vital Signs Temp Pulse Resp BP Pulse Ox 36.6 C 63 16 87/55 L 94 03/12/18 07:52 03/12/18 09:10 03/12/18 07:52 03/12/18 07:52 03/12/18 09:10 Laboratory Results 03/12/18 04:22 03/12/18 04:22 - Physical Exam Constitutional: appears nourished, obese, uncomfortable Eyes: PERRL Ears, Nose, Mouth, Throat: hearing normal Cardiovascular: regular rate and rhythym Respiratory: no respiratory distress Gastrointestinal: normoactive bowel sounds Skin: warm Musculoskeletal: muscular tenderness, generalized weakness Neurologic: AAOx3 Psychiatric: interacting appropriately ICD10 Worksheet Patient Problems: Problems Problem Status Onset Hypoxia Acute Influenza A Acute Sepsis Acute Strep pharyngitis Acute Abdominal pain Acute Syncope Acute
[2018-03-12] MEDS: ENOXAPARIN 40 MG/0.4 ML SYR SC SCH ×2 (16:04→22:01)
[2018-03-12] MEDS: ACETAMINOPHEN 325 MG TAB PO PRN (16:04)
[2018-03-12] MEDS: MELATONIN 3 MG TAB PO SCH (22:02)
[2018-03-13 05:15] LABS: PLATELET COUNT 279 10^3/uL (150-400)
[2018-03-13] MEDS: OSELTAMIVIR PHOSPHATE 75 MG CAP PO SCH (08:32)
[2018-03-13] MEDS: metFORMIN HCL 500 MG TAB PO SCH (08:32)
[2018-03-13] MEDS: ENOXAPARIN 40 MG/0.4 ML SYR SC SCH (08:32)
[2018-03-13] MEDS ORDERED: ALBUTEROL 60 PUFFS/8 GM MDI IH PRN (09:56)
[2018-03-13] MEDS ORDERED: TRIAMCINOLONE 0.5% 15GM CREAM TP PRN (09:56)
[2018-03-13] MEDS ORDERED: FLUTICASONE NASAL 120 SPRAYS/16 GM MDI EACHNARE PRN (09:56)
--- NOTE | 2018-03-13 09:59 | HOSPPROG ---
Hospitalist Progress Note Assessment/Plan: 52 yo F w/ DM and HTN presents with influenza A and strep pharyngitis. * Influenza A - Oseltamivir x5 days - Supportive care with IVF and antipyretics *Strep pharyngitis: Pharyngeal erythema and tonsillar enlargement noted on exam. GAS screen +. - Amoxicillin 500 mg q8H PO, plan for 10 days *leukocytosis -due to the above, improved *Hypotension: Due to infection. -bp still low today, but feeling better and drinking fluids * Hyponatremia: Mild. * KAYLIN: Resolving with IVF. * Sepsis: Improving. * DM: Continue metformin. * HTN: Hold home meds in setting of infection and low/normal BPs. *Dizziness: Due to dehydration/hypotension. 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 Gets a bit lightheaded when getting oob. Objective: Vital Signs Temp Pulse Resp BP Pulse Ox 36.4 C 63 20 98/65 L 93 03/13/18 07:23 03/13/18 07:23 03/13/18 07:23 03/13/18 07:23 03/13/18 07:23 Laboratory Results 03/13/18 04:18 03/13/18 04:18 03/12/18 03/13/18 03/14/18 05:59 05:59 05:59 Intake Total 240 Balance 240 - Physical Exam Constitutional: appears nourished, not in pain, obese Eyes: PERRL Ears, Nose, Mouth, Throat: hearing normal Cardiovascular: regular rate and rhythym Respiratory: no respiratory distress, clear to auscultation Gastrointestinal: normoactive bowel sounds Skin: warm Musculoskeletal: generalized weakness Neurologic: AAOx3 Psychiatric: interacting appropriately ICD10 Worksheet Patient Problems: Problems Problem Status Onset Hypoxia Acute Influenza A Acute Sepsis Acute Strep pharyngitis Acute Abdominal pain Acute Syncope Acute
[2018-03-13 11:29] VITALS: BP 121/74
--- NOTE | 2018-03-13 13:02 | GDS ---
DISCHARGE DIAGNOSES: 1. Influenza A. 2. Streptococcus pharyngitis. 3. Leukocytosis. 4. Hypotension. 5. Hyponatremia. 6. Acute kidney injury. 7. Sepsis. 8. Diabetes. 9. History of hypertension. HISTORY: Briefly, the patient is a 52-year-old woman who presented to the emergency room with fever, sore throat, and malaise. She started feeling poorly and had some shortness of breath and dizziness . It was noted that she had influenza A, as well as strep pharyngitis. She has been treated with Ta miflu, as well as antibiotics. She is improving slowly. She will be discharged home with close foll owup with her primary care provider. HOSPITAL COURSE: 1. Influenza A. supportive care. She is on Tamiflu. 2. Strep pharyngitis. She will get treatment with amoxicillin for a total of 10 days. 3. Leukocytosis, improved. 4. Hypotension. This is due to the fact her blood pressure has been running low, but she is doing m uch better, drinking liquids. 5. Hyponatremia, mild. 6. Acute kidney injury, resolved. 7. Sepsis, resolved. 8. Diabetes, on metformin. 9. Hypertension. Her home medications have been held due to the low blood pressures. DISCHARGE CONDITION: Stable. Blood pressure is 121/74, heart rate of 69, respiratory rate of 16, O2 sats on room air 93%. Temperature is 36.6 Celsius. DISCHARGE MEDICATIONS: Please see the EMR. DISCHARGE INSTRUCTIONS: 1. To follow up with Dr. Greenberg next week. 2. To not take her hydrochlorothiazide or lisinopril until her blood pressure is better. She does h ave a blood pressure cuff at home. 3. To not return to work if she has any fever, chills, or sore throat. She can return to work when she has completed the Tamiflu. 4. Consider [id number] Mucinex for congestion and/or cough. Copy requested to: Dr. Greenberg /[id number]/MODL
[2018-03-13] MEDS ORDERED: LIDOCAINE 2% VISCOUS 15 ML UDCUP PO SCH (16:00)
[2018-03-13] MEDS ORDERED: GABAPENTIN 100 MG CAP PO SCH (16:00)
[2018-03-13] MEDS ORDERED: AMITRIPTYLINE HCL 25 MG TAB PO SCH (21:00)
== END 2018-03-13 14:33 | disposition home or self-care (01) | DRG 872 ==
LOC: F3E 21:41 → OBSVTOIN 03-11 13:03
PROVIDERS: ADMIT Internal Medicine; ATTEND Internal Medicine
DX: A41.9 Sepsis, unspecified organism (principal); N17.9 Acute kidney failure, unspecified; E87.1 Hypo-osmolality and hyponatremia; J10.1 Influenza due to other identified influenza virus with other respiratory manifestations; E11.9 Type 2 diabetes mellitus without complications; I10 Essential (primary) hypertension; Z79.84 Long term (current) use of oral hypoglycemic drugs
CPT/HCPCS: 96374; 97116-GP; 97161-GP; 97165-GO; G0378; J1100; J1650; J1885; J2405